=== PATIENT | male | born 1995 | race Two or more races ===

== ENCOUNTER 2016-09-23 18:55 | Emergency (ER) | payer MEDICAID ==
[~2016-09-23] VITALS: Ht 167.6 cm; Wt 65.8 kg
[2016-09-23 21:01] VITALS: BP 121/82
[2016-09-23] MEDS: NEOMYCIN-BACITRACIN-POLYM UNITDOSE PKG TOP OINT TOP ONE (21:01)
== END 2016-09-23 21:16 | disposition home or self-care (01) ==
LOC: ER 18:55
DX: S00.03XA Contusion of scalp, initial encounter (principal); W22.8XXA Striking against or struck by other objects, initial encounter; Y93.89 Activity, other specified; Y92.89 Other specified places as the place of occurrence of the external cause; Y99.8 Other external cause status

== ENCOUNTER 2016-10-25 22:27 | Emergency (ER) | payer MEDICAID ==
[~2016-10-25] VITALS: Ht 167.6 cm; Wt 66.7 kg
[2016-10-25 22:36] VITALS: BP 125/83
== END 2016-10-25 23:00 | disposition left against medical advice (07) ==
LOC: ER 22:29
DX: L98.9 Disorder of the skin and subcutaneous tissue, unspecified (principal); Z53.21 Procedure and treatment not carried out due to patient leaving prior to being seen by health care provider